=== PATIENT | female | born 1955 | race Caucasian/White ===

== ENCOUNTER → 2020-10-17 12:56 | Outpatient (CLI) | payer MEDICARE, OTHER, SELFPAY ==
[2020-10-17 13:34] LABS: COVID19 -Nasal RAPID POSITIVE (Negative)
== END ==
PROVIDERS: Referring Provider Physician Assistant; Visit Provider Physician Assistant
DX: U07.1 COVID-19 (principal)
CPT/HCPCS: 87635

== ENCOUNTER → 2021-04-24 07:58 | Outpatient (CLI) | payer MEDICARE, OTHER, SELFPAY ==
[2021-04-24 10:43] LABS: Alanine Aminotransferase 26 IU/L (<35); Albumin 4.5 g/dL (3.5-5.0); Albumin Globulin Ratio 1.5 (1.0-2.8); Alkaline Phosphatase 43 U/L (38-126); Aspartate Aminotransferase 28 IU/L (14-36); Bilirubin Total 0.8 mg/dL (0.2-1.3); Blood Urea Nitrogen 18 mg/dL (7-17); Calcium 9.9 mg/dL (8.4-10.2); Carbon Dioxide 33 mmol/L (22-32); Chloride 101 mmol/L (98-107); Cholesterol 214 mg/dL (140-199); Estimated Glomerular Filt Rate > 60.0 mL/min (>60); Glucose 99 mg/dL (80-110); HDL Cholesterol 71 mg/dL (40-60); HEMOLYSIS < 15 (0-50); LDL Cholesterol Calculated 112 mg/dL (<100); Potassium 4.4 mmol/L (3.4-5.1); Sodium 138 mmol/L (137-145); Total Protein 7.5 g/dL (6.3-8.2); Triglycerides 153 mg/dL (35-150)
[2021-04-24 10:50] LABS: Hemoglobin A1C% w Est Avg Glu 5.6 % (4.0-6.0)
== END ==
PROVIDERS: PCP Internal Medicine; Referring Provider Internal Medicine; Visit Provider Internal Medicine
DX: E11.9 Type 2 diabetes mellitus without complications (principal); E78.2 Mixed hyperlipidemia
CPT/HCPCS: 36415; 80053; 80061; 83036

== ENCOUNTER → 2021-08-13 08:34 | Outpatient (CLI) | payer MEDICARE, OTHER, SELFPAY ==
[2021-08-13 10:41] LABS: BUN Creatinine Ratio 20.2 (6-22); Blood Urea Nitrogen 19 mg/dL (7-17); Calcium 9.4 mg/dL (8.4-10.2); Carbon Dioxide 27 mmol/L (22-32); Chloride 105 mmol/L (98-107); Estimated Glomerular Filt Rate > 60 mL/min (>60); Glucose 108 mg/dL (80-110); HEMOLYSIS < 15 (0-50); Potassium 4.3 mmol/L (3.4-5.1); Sodium 139 mmol/L (137-145)
[2021-08-13 10:51] LABS: Hemoglobin A1C% w Est Avg Glu 5.9 % (4.0-6.0)
== END ==
PROVIDERS: PCP Internal Medicine; Referring Provider Internal Medicine; Visit Provider Internal Medicine
DX: E11.9 Type 2 diabetes mellitus without complications (principal); E78.2 Mixed hyperlipidemia
CPT/HCPCS: 36415; 80048; 83036

== ENCOUNTER → 2021-08-17 10:54 | Outpatient (CLI) | payer MEDICARE, OTHER, SELFPAY ==
--- NOTE | 2021-08-17 10:57 | DI.RAD.S_ITS ---
PROCEDURE: XR CERVICAL SPINE 2V OR 3V INDICATIONS: neck pain TECHNIQUE: 3 view(s) of the cervical spine were acquired. COMPARISON: None. FINDINGS: Bones: No fractures or dislocations to the T1 level. The lateral masses of C1 appear intact on the odontoid view. No suspicious bony lesions. Moderate C5-C6 and C6-C7 degenerative disc disease. Mild C4-C5 and C7-T1 degenerative disc disease. Mild facet hypertrophy noted throughout the cervical spine. Mild bilateral C3-C4, C4-C5, C5-C6 and C6-C7 uncovertebral hypertrophy. Soft tissues: No prevertebral soft tissue swelling. IMPRESSION: 1. Multilevel degenerative disc disease. 2. Multilevel facet and uncovertebral arthropathy. 3. No fracture. No acute osseous lesion. If symptoms and/or clinical suspicion for pathology persists, evaluation with MRI should be considered for further assessment. Dictated by: Shahnaz Enriquez MD, PhD on 08/17/2021 at 12:22 Approved by: Shahnaz Enriquez MD, PhD on 08/17/2021 at 12:23
== END ==
PROVIDERS: PCP Internal Medicine; Referring Provider Internal Medicine; Visit Provider Internal Medicine
DX: M47.812 Spondylosis without myelopathy or radiculopathy, cervical region (principal); M50.321 Other cervical disc degeneration at C4-C5 level
CPT/HCPCS: 72040

== ENCOUNTER 2021-10-28 09:41 | Emergency (ER) | payer MEDICARE, OTHER, SELFPAY ==
[2021-10-28] VITALS (13 sets, daily range): BP systolic 120–165; BP diastolic 60–82; PULSE 59–71; RESP 16–40; TEMP 36.8; O2SAT 96–100; BMI 29.4
--- NOTE | 2021-10-28 09:48 | DI.RAD.S_ITS ---
PROCEDURE: XR CHEST 1V INDICATIONS: chest pain TECHNIQUE: One view of the chest was acquired. COMPARISON: None. FINDINGS: Surgical changes and devices: None. Lungs and pleura: Lungs are clear. No pleural effusions or pneumothorax. Mediastinum: Mediastinal contours appear normal. Heart size is normal. Bones and chest wall: No suspicious bony lesions. Overlying soft tissues appear unremarkable. IMPRESSION: Normal chest radiograph. Dictated by: Vinod Licona M.D. on 10/28/2021 at 9:26 Approved by: Vinod Licona M.D. on 10/28/2021 at 9:28
[2021-10-28 10:28] LABS: Prothrombin Time 11.2 SECONDS (10.1-12.7)
[2021-10-28 10:29] LABS: Add Manual Diff / Slide Review NO; Basophils Absolute Auto 100 /uL (0-100); Eosinophils Absolute Auto 200 /uL (0-450); Eosinophils Percent Auto 2.8 % (2-4); Hemoglobin 14.5 g/dL (12.0-16.0); Lymphocytes Absolute Auto 2800 /uL (1100-4500); Mean Corpuscular HGB Conc 33.9 % (30-36); Mean Corpuscular Hemoglobin 27.7 PG (26-34); Mean Corpuscular Volume 81.8 fL (80-100); Monocytes Absolute Auto 500 /uL (0-900); Monocytes Percent Auto 7.5 % (3-14); Neutrophils Absolute Auto 2600 /uL (1500-7000); Neutrophils Percent Auto 42.7 % (50-75); Platelet Count 287 X10^3/uL (150-400); Red Blood Cell Count 5.25 X10^6/uL (4.0-5.2); Red Cell Distribution Width 13.8 % (11.6-14.8); White Blood Cell Count 6.1 X10^3/uL (4.5-11.0)
[2021-10-28 10:30] LABS: PTT Partial Thromboplastin Tim 31 SECONDS (26-36)
[2021-10-28 10:32] LABS: Alanine Aminotransferase 26 IU/L (<35); Albumin 4.2 g/dL (3.5-5.0); Albumin Globulin Ratio 1.2 (1.0-2.8); Alkaline Phosphatase 53 U/L (38-126); Aspartate Aminotransferase 27 IU/L (14-36); BUN Creatinine Ratio 22.5 (6-22); Bilirubin Total 0.6 mg/dL (0.2-1.3); Blood Urea Nitrogen 20 mg/dL (7-17); Calcium 9.4 mg/dL (8.4-10.2); Carbon Dioxide 25 mmol/L (22-32); Chloride 106 mmol/L (98-107); Creatine Kinase 113 U/L (30-135); Estimated Glomerular Filt Rate > 60 mL/min (>60); Globulin 3.5 g/dL (1.7-4.1); Glucose 127 mg/dL (80-110); HEMOLYSIS < 15 (0-50); Lipase 93 U/L (23-300); Magnesium 1.8 mg/dL (1.6-2.3); Potassium 3.9 mmol/L (3.4-5.1); Sodium 140 mmol/L (137-145); Total Protein 7.7 g/dL (6.3-8.2)
[2021-10-28 10:34] LABS: COVID19 -Nasal RAPID Negative (Negative)
[2021-10-28 10:44] LABS: Troponin I < 0.012 ng/mL (0.01-0.034)
[2021-10-28 10:47] LABS: CKMB % Relative Index 0.9 % (1.5-5.0); Creatine Kinase MB 0.97 ng/mL (<2.37)
[2021-10-28 12:35] LABS: Troponin I < 0.012 ng/mL (0.01-0.034)
--- NOTE | 2021-10-28 12:36 | ED_ITS ---
HPI - Chest Pain General Chief Complaint: Chest Pain Stated Complaint: heart palp pressure in chest Time Seen by Provider: 10/28/21 11:06 Source: patient Mode of arrival: Ambulatory Limitations: no limitations History of Present Illness HPI narrative: This is a 66-year-old female with history of hypertension and dyslipidemia with frequent palpitations that are increasing in frequency but also developed chest pressure this morning substernal about 8:00 a.m. in the morning that has been persistent had not resolved, no radiation, no shortness of breath, no diaphoresis, no lightheadedness, no nausea or vomiting, no swelling in extremities. Patient is quite active she biked 15 miles yesterday. She does have a family history dad had a CABG at age 75 in his 80s was a heavy smoker, she states her mom was also heavy smoker but of a VT younger than patient's stated age. She is multiple siblings but she is unsure of their medical status. She had a similar episode 4 years ago never had treadmill str ess testing she went to an urgent care. She would a complete hysterectomy 20 years ago, prior cholecystectomy, no tobacco drinks 1.5 alcoholic drinks daily, no illicit. No long distance travel, no blood clotting history in family or patient. Patient sees Dr. Contreras for her primary care. Related Data Home Medications Medication Instructions Recorded Confirmed cholecalciferol (vitamin D3) 25 25 mcg PO DAILY 03/01/21 08/17/21 mcg (1,000 unit) capsule digestive enzymes 1 cap PO TIDWMEAL 03/01/21 08/17/21 vitamin B complex 1 tab PO DAILY 03/01/21 08/17/21 Previous Rx's Medication Instructions Recorded hydrochlorothiazide 12.5 mg tablet 12.5 mg PO DAILY #90 tabs 05/22/21 ipratropium bromide 21 mcg (0.03 2 spray intranasal DAILY PRN 05/22/21 %) nasal spray allergy symptoms #30 mL pravastatin 20 mg tablet 20 mg PO DAILY #90 tabs 05/22/21 Allergies Allergy/AdvReac Type Severity Reaction Status Date / Time Penicillins Allergy Intermediate Fever, Verified 08/17/21 10:33 chills Review of Systems Review of Systems ROS Unobtainable: All systems reviewed & are unremarkable except as noted in HPI and below Patient History Medical History Body mass index (BMI) of 25 to 29 in adult COVID-19 Impaired glucose tolerance Mixed hyperlipidemia Surgical History H/O section S/P cholecystectomy S/P hysterectomy S/P left rotator cuff repair S/P tubal ligation Social History Smoking Status: Never smoker Smoking Status: Never smoker Exam Narrative Exam Narrative: GENERAL: Alert and oriented x three, female in mild distress. HEENT: Head normocephalic, atraumatic, EOMI, pupils reactive, face symmetric, moist mucous membranes NECK: Supple, full range of motion CARDIOVASCULAR: Regular rate and rhythm without murmurs, rubs or gallops. No rash, erythema or other skin changes. No reproducible chest pain or pressure. No swelling bilateral lower extremities. No JVD. RESPIRATORY: Breath sounds equal bilaterally, no wheezes rales or rhonchi. ABDOMEN: Soft, nontender. Normoactive bowel sounds all 4 quadrants. No guarding or rebound, rigidity, no mass : No CVA tenderness EXTREMITIES: Normal range of motion, no clubbing or edema. Neurovascularly intact NEUROLOGICAL: Cranial nerves II through XII grossly intact. Moving all extremities SKIN: Warm, dry, no petechiae, no rashes or lesions. Initial Vital Signs Initial Vital Signs: Vital Signs Temperature 98.2 F 10/28/21 09:54 Pulse Rate 68 10/28/21 09:54 Respiratory Rate 18 10/28/21 09:54 Blood Pressure 165/72 H 10/28/21 09:54 Pulse Oximetry 100 10/28/21 09:54 Oxygen Delivery Method 10/28/21 09:54 Scores HEART Score Heart Score history: Moderately Suspicious Heart Score EKG: Normal Heart Score Age: > or = 65 years old Heart Score risk factors: > 3 risk factors or hx of atherosclerotic disease Heart Score troponin: < or = to normal limit Heart Score Total: 5 Course Orders Ordered: ED Orders 10/28/21 10:07 COVID19 -Nasal RAPID/Pre-Proc Stat Complete Blood Count AUTO DIFF Stat Comprehensive Metabolic Panel Stat Lipase Stat Magnesium Stat Partial Thromboplastin Time Stat Prothrombin Time INR Stat Troponin & CK Cardiac Panel Stat 10/28/21 12:07 Trop I [Troponin I] Stat 10/28/21 16:00 Trop I [Troponin I] Stat Discontinued Medications Aspirin (Aspirin 81 Mg Chew Tab) 324 mg PO NOW ONE Stop: 10/28/21 13:09 Last Admin: 10/28/21 13:28 Dose: 324 mg Documented By: ALEJO Reevaluation(s) Reevaluation #1: Patient does not wish to be kept overnight for observation, she does understand risks versus benefits. She is open to seeing for 4 hour troponin so will repeat this at 4:00 p.m. 6 hours from 1st troponin in 4 hours from her 2nd. Time: 13:10 Consultations Consultation #1: Dr. Contreras, is willing to accept patient for chest pain but we can not get stress testing tomorrow would likely be serial troponins and echo. Discussed with patient she is reluctant to spend the night. Dr. Contreras recommends at least a 6 hour troponin at 4:00 p.m. and if negative can follow-up with echo and stress testing outpatient but he is happy to keep patient if she would like to stay. Time: 13:00 Vital Signs Vital signs: Vital Signs - 8 hr 10/28/21 11:30 10/28/21 11:30 10/28/21 12:00 Pulse Rate 69 Respiratory Rate 17 Blood Pressure 121/70 129/73 Pulse Oximetry 96 10/28/21 12:00 10/28/21 12:30 10/28/21 12:30 Pulse Rate 65 59 L Respiratory Rate 23 16 Blood Pressure 121/71 Pulse Oximetry 98 98 10/28/21 13:00 10/28/21 13:00 10/28/21 13:30 Pulse Rate 67 Respiratory Rate 20 Blood Pressure 127/82 129/78 Pulse Oximetry 99 10/28/21 13:30 10/28/21 16:07 10/28/21 16:08 Pulse Rate 67 71 Respiratory Rate 27 H 40 H Blood Pressure 127/69 Pulse Oximetry 98 97 10/28/21 16:08 10/28/21 16:30 10/28/21 17:00 Pulse Rate 67 65 63 Respiratory Rate 16 18 18 Blood Pressure Pulse Oximetry 98 96 96 MDM - Chest Pain Lab Data Result diagrams: 10/28/21 10:07 10/28/21 10:07 Labs: Lab Results 09/04/22 09/04/22 09/04/22 Range/Units 10:07 10:07 10:07 WBC 6.1 (4.5-11.0) X10^3/uL RBC 5.25 H (4.0-5.2) X10^6/uL Hgb 14.5 (12.0-16.0) g/dL Hct 43.0 (36-46) % MCV 81.8 (80-100) fL MCH 27.7 (26-34) PG MCHC 33.9 (30-36) % RDW 13.8 (11.6-14.8) % Plt Count 287 (150-400) X10^3/uL Neut % (Auto) 42.7 L (50-75) % Lymph % (Auto) 46.0 H (25-40) % [place] % (Auto) 7.5 (3-14) % Eos % (Auto) 2.8 (2-4) % Baso % (Auto) 1.0 (0-2) % Neut # (Auto) 2600 (1739-8011) /uL Lymph # (Auto) 2800 (0239-1825) /uL [place] # (Auto) 500 (0-900) /uL Eos # (Auto) 200 (0-450) /uL Baso # (Auto) 100 (0-100) /uL PT 11.2 (10.1-12.7) SECONDS INR 1.0 (0.9-1.3) APTT 31 (26-36) SECONDS Sodium 140 (137-145) mmol/L Potassium 3.9 (3.4-5.1) mmol/L Chloride 106 (98-107) mmol/L Carbon Dioxide 25 (22-32) mmol/L BUN 20 H (7-17) mg/dL Creatinine 0.89 (0.52-1.04) mg/dL Estimated GFR > 60 (>60) mL/min BUN/Creatinine Ratio 22.5 H (6-22) Glucose 127 H (80-110) mg/dL Calcium 9.4 (8.4-10.2) mg/dL Magnesium 1.8 (1.6-2.3) mg/dL Total Bilirubin 0.6 (0.2-1.3) mg/dL AST 27 (14-36) IU/L ALT 26 (<35) IU/L Alkaline Phosphatase 53 (38-126) U/L Total Creatine Kinase 113 (30-135) U/L CK-MB (CK-2) 0.97 (<2.37) ng/mL CK-MB (CK-2) Rel Index 0.9 L (1.5-5.0) % Troponin I < 0.012 (0.01-0.034) ng/mL Total Protein 7.7 (6.3-8.2) g/dL Albumin 4.2 (3.5-5.0) g/dL Globulin 3.5 (1.7-4.1) g/dL Albumin/Globulin Ratio 1.2 (1.0-2.8) Lipase 93 (23-300) U/L SARS-CoV-2 (PCR) (Negative) 10/28/21 10/28/21 10/28/21 Range/Units 10:07 12:07 16:00 WBC (4.5-11.0) X10^3/uL RBC (4.0-5.2) X10^6/uL Hgb (12.0-16.0) g/dL Hct (36-46) % MCV (80-100) fL MCH (26-34) PG MCHC (30-36) % RDW (11.6-14.8) % Plt Count (150-400) X10^3/uL Neut % (Auto) (50-75) % Lymph % (Auto) (25-40) % [place] % (Auto) (3-14) % Eos % (Auto) (2-4) % Baso % (Auto) (0-2) % Neut # (Auto) (6906-4313) /uL Lymph # (Auto) (3875-6989) /uL [place] # (Auto) (0-900) /uL Eos # (Auto) (0-450) /uL Baso # (Auto) (0-100) /uL PT (10.1-12.7) SECONDS INR (0.9-1.3) APTT (26-36) SECONDS Sodium (137-145) mmol/L Potassium (3.4-5.1) mmol/L Chloride (98-107) mmol/L Carbon Dioxide (22-32) mmol/L BUN (7-17) mg/dL Creatinine (0.52-1.04) mg/dL Estimated GFR (>60) mL/min BUN/Creatinine Ratio (6-22) Glucose (80-110) mg/dL Calcium (8.4-10.2) mg/dL Magnesium (1.6-2.3) mg/dL Total Bilirubin (0.2-1.3) mg/dL AST (14-36) IU/L ALT (<35) IU/L Alkaline Phosphatase (38-126) U/L Total Creatine Kinase (30-135) U/L CK-MB (CK-2) (<2.37) ng/mL CK-MB (CK-2) Rel Index (1.5-5.0) % Troponin I < 0.012 < 0.012 (0.01-0.034) ng/mL Total Protein (6.3-8.2) g/dL Albumin (3.5-5.0) g/dL Globulin (1.7-4.1) g/dL Albumin/Globulin Ratio (1.0-2.8) Lipase (23-300) U/L SARS-CoV-2 (PCR) Negative (Negative) Imaging Data Chest x-ray: Radiologist's Impression: [address] [id number] ReportSigned Patient: Ollie Krishna RMR#: [id number]: 09/30/1942cct:[id number]/Sex: 79 / FDate of Service: 10/28/21Loc: EDAccession Number: [id number]? ? Procedure: XR ankle RT min 3V Ordering Provider: Taylor Leggett D.O. PROCEDURE:? XR ANKLE RT MIN 3V ? INDICATIONS:? fall, ankle pain and swelling ? TECHNIQUE:? 3 views of the ankle were acquired.? ? COMPARISON:? [facility], , ANKLE 3 VIEWS RIGHT, 10/04/2015, 13:41. ? FINDINGS:? Distal fibular fracture with mild lateral displacement of fracture fragment.? Medial malleolar fracture.? Possible posterior malleolar fracture not well appreciated.? There is widening of the ankle mortise.? Prominent soft tissue edema. .? ? ? IMPRESSION:? Medial and lateral malleolar fractures with suspected posterior malleolar fracture. ? Dictated by: Vinod Licona M.D. on 10/28/2021 at 9:53? ?? Approved by: Vinod Licona M.D. on 10/28/2021 at 9:58 ECG Data Attestation: I personally reviewed and interpreted this ECG as follows: Interpretation: EKG 1 shows a rate of 75 CO 172 QRS 86 QTC 439. No acute ST changes appreciated. EKG 2 Sinus rhythm rate of 60 CO 186 QRS of 90, QTC 424. No acute ST changes appreciated. Patient has prior from earlier today no acute change. EKG 3 sinus rhythm rate of 60 P are 174 QRS of 92 QTC 412. Patient's EKG appears similar to priors from today. MDM Narrative Medical decision making narrative: 66-year-old female with complaint of palpitations which are quite frequent but also developed some chest pressure today does not radiate, no diaphoresis or other symptoms but patient has risk factors with hypertension dyslipidemia and family history although both parents were heavy smokers. Patient's EKG and troponins x2 did not show acute changes no other clear cause was found for her symptoms. Spoke with Dr. Contreras her primary care physician about chest pain observation they can not get stress testing tomorrow they will not have any available we could keep her for serial enzymes but she will have to have stress test as outpatient. Patient prefers not to come in although Dr. Contreras accepts for show troponins potential echo tomorrow. Discussed with Dr. Contreras for repeat 6 hour troponin would feel comfortable ordering stress testing outpatient. This was performed no acute changes patient continues to be chest pain-free and she understands risks versus benefits and that observation was available overnight. Patient and I discussed return precautions. She will touch base with Dr. Contreras on Friday for stress testing as outpatient and appropriate workup. Discharge Plan Departure Patient Disposition: Home Clinical Impression: Chest pain Instructions: DI for Chest Pain Activity Restrictions/Additional Instructions: Follow-up with Dr. Contreras for recheck. I spoke with him today he will assist you in getting outpatient stress testing performed. Also discussed that you have frequent palpitations he may order a Holter monitor or ZIO patch which is away to monitor your rhythm at home. Please continue an aspirin daily until seen with your physician. Please return for new or worsening chest pain, shortness of breath, lightheadedness or passing out, diaphoresis or sweatiness, increasing palpitations or persistent fast heartbeat, new swelling in her extremities or other new or concerning symptoms. Prescriptions: No Action pravastatin 20 mg tablet 20 mg PO DAILY Qty: 90 3RF ipratropium bromide 21 mcg (0.03 %) spray,non-aerosol 2 spray intranasal DAILY PRN (Reason: allergy symptoms) Qty: 30 11RF hydrochlorothiazide 12.5 mg tablet 12.5 mg PO DAILY Qty: 90 3RF vitamin B complex Tablet 1 tab PO DAILY cholecalciferol (vitamin D3) 25 mcg (1,000 unit) capsule 25 mcg PO DAILY digestive enzymes Capsule 1 cap PO TIDWMEAL Hold Instructions: no help for IBS Rx Instructions: administer with food; swallow whole; do not crush/chew/dissolve/break/cut Referrals: Alvino Contreras MD [Primary Care Provider] - Visit Report Forms: Patient Portal/API
[2021-10-28] MEDS: ASPIRIN 81 MG CHEW TAB 324 MG PO (13:28)
[2021-10-28 16:26] LABS: Troponin I < 0.012 ng/mL (0.01-0.034)
== END 2021-10-28 17:25 | disposition home or self-care (01) ==
PROVIDERS: Emergency Provider Emergency Medicine; PCP Internal Medicine
DX: R07.9 Chest pain, unspecified (principal); R00.2 Palpitations; Z20.822 Contact with and (suspected) exposure to COVID-19
CPT/HCPCS: 36415; 71045; 80053; 82550; 82553; 83690; 83735; 84484; 85025; 85610; 85730; 87635; 93005; 93010; 99284; C9803

== ENCOUNTER → 2021-11-30 12:35 | Outpatient (CLI) | payer MEDICARE, OTHER, SELFPAY ==
[2021-11-30 13:29] LABS: COVID19 -Nasal RAPID Negative (Negative)
--- NOTE | 2021-11-30 14:28 | PM.TREADMILL ---
Cardiac Stress Test Report Referral & Results Date Patient Seen: 11/30/21 Requesting provider: Alvino Contreras Indication: Chest pain status post ER visit Rest ECG: Unremarkable Procedure Note: Today following both written and verbal informed consent, the patient was exercised according to a standard Balbir protocol. The patient exercised for a total of 9 minutes 48 seconds achieving a maximum heart rate of 181. Patient's maximum systolic blood pressure was 182. This was an estimated 10.1 MET's. Patient had normal heart rate and blood pressure response to exercise There are no ST-T segment changes In recovery had rare PACs rare PVCs Function aerobic impairment way way way off scale estimate capacity equal to that of an active 33-year-old woman Impression: No evidence of ischemia with excellent exercise capacity Please note: Actual ECG tracings can be found in the PACS system.
--- NOTE | 2021-12-01 04:33 | DI.NM.S_ITS ---
DATE OF SERVICE: 11/30/2021 PROCEDURE PERFORMED: Exercise treadmill stress test without imaging. ORDERING PROVIDER: Dr. Alvino Contreras. INDICATIONS: The patient is a 66-year-old female with hyperlipidemia, borderline diabetes, and chest discomfort. FINDINGS: 1. The patient exercised for 9 minutes, 48 seconds, suggesting exceptional exercise capacity with an RONALD of likely around -50%, achieving 10.1 METs. 2. She had a somewhat accentuated heart rate response to exercise, achieving a maximum heart rate of 181 BPM (118% of her predicted maximum). She had a normal blood pressure response. 3. She had no chest discomfort or other anginal symptoms. 4. Her resting ECG shows sinus rhythm with normal ST segments. There are no significant ST-segment shifts or arrhythmias with stress. She had rare isolated PACs and PVCs in recovery but no concerning complex ectopy. IMPRESSION: 1. Normal exercise treadmill study for ischemia. 2. Exceptional exercise capacity without angina and a somewhat accentuated heart rate response to exercise. Nita Thibodeaux - Cole/warren doc#: [id number]/job#: [id number] dd: 11/30/2021 17:02:00 dt: 12/01/2021 04:04:00 DICTATING /COPIES TO: Gt Evangelista MD COPIES MNE: NATALIE;
== END ==
PROVIDERS: PCP Internal Medicine; Referring Provider Internal Medicine; Visit Provider Internal Medicine
DX: R07.89 Other chest pain (principal); E78.5 Hyperlipidemia, unspecified; R73.03 Prediabetes; Z20.822 Contact with and (suspected) exposure to COVID-19
CPT/HCPCS: 87635; 93017

== ENCOUNTER → 2021-12-04 08:02 | Outpatient (CLI) | payer MEDICARE, OTHER, SELFPAY ==
--- NOTE | 2021-12-04 08:03 | DI.ECHO.S_ITS ---
[facility]---------+ [facility] +---------+ : : [address] [place] : : : : [id number] : : : : Phone: [phone]+ Echocardiogram Report + + :Name: BRAYDEN SHANE Study Date: 12/04/2021 Height: 70 in : :[facility] ReadingLocation: Weight: 205 lb : : Gender: Female BSA: 2.1 m2 : :: 1955 Age: 66 yrs BP: 123/87 mmHg: :Reason For Study: ARRHYTHMIA, CHEST PAIN : :Ordering Physician: LAKE, : :JOLIE Mahajan Performed By: Kristen Dumont : :Referring: JOLIE BETHEA : + + Interpretation Summary The ejection fraction is estimated to be 60-65%. There is no significant valvular heart disease. Procedure: A two-dimensional transthoracic echocardiogram with color flow and Doppler was performed. The study quality was technically difficult. There is no prior echocardiogram noted for this patient. A contrast injection of Definity was performed to improve assessment of LV function. The patient was in sinus rhythm with heart rates between 56-71 bpm during the exam. Left Ventricle: The left ventricle is normal in size and wall thickness. The ejection fraction is estimated to be 60-65%. Left ventricular wall motion is normal. Right Ventricle: The right ventricle is normal in size and function. Atria: The left atrial size is normal. Right atrial size is normal. There is no Doppler evidence for an interatrial shunt. Mitral Valve: The mitral valve is normal in structure and function. There is trace mitral regurgitation. Aortic Valve: The aortic valve is not well visualized. The aortic valve is grossly normal. The aortic valve opens well. There is no aortic valve stenosis. No aortic regurgitation is present. Tricuspid Valve: The tricuspid valve is not well visualized, but is grossly normal. There is trace tricuspid regurgitation. Pulmonic Valve: The pulmonic valve is not well visualized. There is no pulmonic valvular regurgitation. Great Vessels: The aortic root is normal size. The ascending aorta is at the upper limits of normal in size. The IVC is dilated (diameter is greater than 2.1 cm) yet it collapses greater than 50% with a sniff. This suggests a right atrial pressure of 8 mm Hg. Pericardium/ Pleura There is no pericardial effusion. There is no pleural effusion. MMode/2D Measurements & Calculations LVIDd: 5.0 cm LVOT diam: 2.0 cm LVIDs: 3.0 cm Ao root diam: 3.2 cm FS: 40.5 % asc Aorta Diam: 3.8 cm EPSS: 0.34 cm Ao Arch Diam (Prox Trans): 3.3 cm IVSd: 1.0 cm LVPWd: 1.00 cm LV lee. diameter/BSA (cm/m^2): 2.4 LV sys. diameter/BSA (cm/m^2): 1.4 LA A2 area: 22.6 cm2 RA long axis: 4.9 cm LA A4 area: 18.7 cm2 RA area: 14.5 cm2 LA length (vol): 5.6 cm RA vol: 36.8 ml LA vol: 64.1 ml RA : 17.4 ml/m2 LA vol index: 30.4 ml/m2 IVC diam: 2.4 cm RVD1 (basal): 3.4 cm TAPSE: 2.0 cm Doppler Measurements & Calculations Ao V2 max: 129.0 cm/sec LVOT Max Olayinka: 99.0 cm/sec Ao V2 mean: 93.4 cm/sec LV V1 max P.9 mmHg Ao max P.7 mmHg LV V1 VTI: 24.7 cm Ao mean P.8 mmHg MOLLY(I,D): 2.8 cm2 Ao V2 VTI: 28.8 cm MOLLY(V,D): 2.5 cm2 sev ratio: 0.86 MOLLY indexed to BSA (cm^2/m^2): 1.3 MV E max olayinka: 59.4 cm/sec PA V2 max: 105.5 cm/sec MV A max olayinka: 70.7 cm/sec PA V2 mean: 74.0 cm/sec MV E/A: 0.84 PA mean P.4 mmHg Med Peak E' Olayinka: 9.3 cm/sec PA pr(Accel): 32.8 mmHg E/E' med: 6.4 Lat Peak E' Olayinka: 9.6 cm/sec E/E' lat: 6.2 E/e' average: 6.3 MV dec time: 0.32 sec SV(LVOT): 81.3 ml Reading Physician:02:16 PM
== END ==
PROVIDERS: PCP Internal Medicine; Referring Provider Internal Medicine; Visit Provider Internal Medicine
DX: R07.9 Chest pain, unspecified (principal); I49.9 Cardiac arrhythmia, unspecified
CPT/HCPCS: 93306; Q9957

== ENCOUNTER → 2021-12-05 15:16 | Outpatient (CLI) | payer MEDICARE, OTHER, SELFPAY ==
--- NOTE | 2021-12-25 16:59 | P.HOLT.S_ITS ---
Pull Out Operator Report Referral & Results Date Patient Seen: 12/05/21 Requesting provider: Alvino Contreras Indication: Cardiac arrhythmia Duration of monitoring (days): 14 Diary information: There were 6 patient triggered events and 6 patient diary entries All 12 of these events were variably associated with (within 45 seconds) sinus rhythm, PVCs, PACs and SVT Data: Minimum heart rate identified was 50 beats per minute at 05:16 on 12/13/2021 Maximum sinus heart rate was 140 beats per minute at 20:16 on 12/08/2021 Maximum overall heart rate was 162 beats per minute at 18:38 on 12/07/2021 during a run of SVT Less than 1% of identified beats were ventricular or supraventricular ectopic in origin, which would classify them as rare. There were no pauses of 3 seconds or longer or episodes of atrial fibrillation identified on this study There were 26 runs of SVT the fastest being the 7 beat run at 162 beats per minute the longest lasting 17.2 seconds at a rate of 118 beats per minute which suggest possible atrial tachycardia Impression: 14 day secured entrance monitor demonstrating very rare very brief runs of SVT otherwise essentially normal 14 day secured entrance monitor Clinical correlation suggested
== END ==
PROVIDERS: PCP Internal Medicine; Referring Provider Internal Medicine; Visit Provider Internal Medicine
DX: I49.9 Cardiac arrhythmia, unspecified (principal); R07.9 Chest pain, unspecified
CPT/HCPCS: 93246; 93248

== ENCOUNTER → 2021-12-21 10:49 | Outpatient (CLI) | payer MEDICARE, OTHER, SELFPAY ==
--- NOTE | 2021-12-21 | DI.MG.S_ITS ---
BILATERAL DIGITAL SCREENING MAMMOGRAM 3D/2D WITH CAD: 12/21/2021 CLINICAL: Routine screening. Comparison is made to exams dated: 10/06/2019 mammogram, 08/05/2018 mammogram, and 06/25/2017 mammogram - outside. Both breasts are heterogeneously dense, which may obscure small masses (category c / 51-75% glandular tissue). Current study was also evaluated with a Computer Aided Detection (CAD) system. No significant masses, calcifications, or other findings are seen in either breast. There has been no significant interval change. IMPRESSION: NEGATIVE There is no mammographic evidence of malignancy. A 1 year screening mammogram is recommended. Based on the Tyrer Cuzick model (a risk assessment model) the patient's lifetime risk is 7.3% and her 10 year risk is 3.7%. According to the ACR, ACS, and NCCN guidelines, an annual breast MRI exam along with mammogram is recommended if the patient's lifetime risk is 20% or greater. This exam was interpreted at Station ID: [id number]. NOTE: For mammograms, a report in lay terms will be sent to the patient. Approximately 15% of breast malignancies will not be visualized mammographically. In the management of a palpable breast mass, a negative mammogram must not discourage biopsy of a clinically suspicious lesion. Electronically Signed By: Lin finley/heraclio:12/21/2021 14:13:42 letter sent: Normal Exam ACR BI-RADS Category 1: Negative 3341F
== END ==
PROVIDERS: PCP Internal Medicine; Referring Provider Internal Medicine; Visit Provider Internal Medicine
DX: Z12.31 Encounter for screening mammogram for malignant neoplasm of breast (principal)
CPT/HCPCS: 77063; 77067

== ENCOUNTER → 2022-01-23 08:32 | Outpatient (CLI) | payer MEDICARE, OTHER, SELFPAY ==
[2022-01-23 10:53] LABS: Alanine Aminotransferase 30 IU/L (<35); Albumin 4.2 g/dL (3.5-5.0); Albumin Globulin Ratio 1.4 (1.0-2.8); Alkaline Phosphatase 55 U/L (38-126); Aspartate Aminotransferase 28 IU/L (14-36); BUN Creatinine Ratio 21.4 (6-22); Bilirubin Total 0.7 mg/dL (0.2-1.3); Blood Urea Nitrogen 18 mg/dL (7-17); Calcium 9.4 mg/dL (8.4-10.2); Carbon Dioxide 26 mmol/L (22-32); Chloride 103 mmol/L (98-107); Cholesterol 253 mg/dL (140-199); Estimated Glomerular Filt Rate > 60 mL/min (>60); Globulin 3.1 g/dL (1.7-4.1); Glucose 96 mg/dL (80-110); HDL Cholesterol 65 mg/dL (40-60); HEMOLYSIS < 15 (0-50); LDL Cholesterol Calculated 160 mg/dL (<100); Potassium 4.1 mmol/L (3.4-5.1); Sodium 139 mmol/L (137-145); Total Protein 7.3 g/dL (6.3-8.2); Triglycerides 142 mg/dL (35-150)
== END ==
PROVIDERS: PCP Internal Medicine; Referring Provider Internal Medicine; Visit Provider Internal Medicine
DX: E78.2 Mixed hyperlipidemia (principal)
CPT/HCPCS: 36415; 80053; 80061

== ENCOUNTER → 2022-09-05 09:48 | Outpatient (CLI) | payer MEDICARE, OTHER, SELFPAY ==
[2022-09-05 12:25] LABS: Alanine Aminotransferase 25 IU/L (<35); Albumin 4.2 g/dL (3.5-5.0); Albumin Globulin Ratio 1.4 (1.0-2.8); Alkaline Phosphatase 57 U/L (38-126); Aspartate Aminotransferase 27 IU/L (14-36); Bilirubin Total 0.7 mg/dL (0.2-1.3); Blood Urea Nitrogen 20 mg/dL (7-17); Calcium 9.6 mg/dL (8.4-10.2); Carbon Dioxide 33 mmol/L (22-32); Chloride 100 mmol/L (98-107); Cholesterol 252 mg/dL (140-199); Estimated Glomerular Filt Rate > 60 mL/min (>60); Glucose 96 mg/dL (80-110); HDL Cholesterol 64 mg/dL (40-60); HEMOLYSIS < 15 (0-50); LDL Cholesterol Calculated 161 mg/dL (<100); Potassium 4.3 mmol/L (3.4-5.1); Sodium 138 mmol/L (137-145); Total Protein 7.2 g/dL (6.3-8.2); Triglycerides 137 mg/dL (35-150)
== END ==
PROVIDERS: PCP Internal Medicine; Referring Provider Internal Medicine; Visit Provider Internal Medicine
DX: E78.2 Mixed hyperlipidemia (principal); R73.02 Impaired glucose tolerance (oral)
CPT/HCPCS: 36415; 80053; 80061

== ENCOUNTER → 2023-02-25 13:21 | Outpatient (CLI) | payer MEDICARE, OTHER, SELFPAY ==
--- NOTE | 2023-02-25 13:23 | DI.MG.S_ITS ---
BILATERAL DIGITAL SCREENING MAMMOGRAM 3D/2D WITH CAD: 02/25/2023 CLINICAL: Routine screening. Family history of breast cancer. Comparison is made to exams dated: 12/21/2021 mammogram - [facility], 10/06/2019 mammogram, and 08/05/2018 mammogram - outside. Both breasts are heterogeneously dense, which may obscure small masses (category c / 51-75% glandular tissue). Current study was also evaluated with a Computer Aided Detection (CAD) system. No significant masses, calcifications, or other findings are seen in either breast. There has been no significant interval change. IMPRESSION: NEGATIVE There is no mammographic evidence of malignancy. A 1 year screening mammogram is recommended. Based on the Tyrer Cuzick model (a risk assessment model) the patient's lifetime risk is 7.0% and her 10 year risk is 3.6%. According to the ACR, ACS, and NCCN guidelines, an annual breast MRI exam along with mammogram is recommended if the patient's lifetime risk is 20% or greater. This exam was interpreted at Station ID: [id number]. NOTE: For mammograms, a report in lay terms will be sent to the patient. Approximately 15% of breast malignancies will not be visualized mammographically. In the management of a palpable breast mass, a negative mammogram must not discourage biopsy of a clinically suspicious lesion. Electronically Signed By: Yonas pan/heraclio:02/25/2023 16:31:34 letter sent: Normal Exam ACR BI-RADS Category 1: Negative 3341F
== END ==
PROVIDERS: PCP Internal Medicine; Referring Provider Internal Medicine; Visit Provider Internal Medicine
DX: Z12.31 Encounter for screening mammogram for malignant neoplasm of breast (principal); Z80.3 Family history of malignant neoplasm of breast
CPT/HCPCS: 77063; 77067

== ENCOUNTER → 2023-10-07 10:24 | Outpatient (CLI) | payer MEDICARE, OTHER, SELFPAY ==
--- NOTE | 2023-10-07 10:25 | DI.RAD.S_ITS ---
PROCEDURE: XR KNEE RT 3V INDICATIONS: knee pain TECHNIQUE: 3 views of the knee were acquired. COMPARISON: None. FINDINGS: Bones: No fractures or dislocations. 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 Vacuum phenomena of the lateral compartment noted. Soft tissues: No radiographically evident suprapatellar joint effusion IMPRESSION: No acute bony abnormality or significant effusion. Tricompartmental DJD Dictated by: Lewis Davis M.D. on 10/07/2023 at 15:33 Approved by: Lewis Davis M.D. on 10/07/2023 at 15:34
== END ==
PROVIDERS: PCP Internal Medicine; Referring Provider Internal Medicine; Visit Provider Internal Medicine
DX: M17.11 Unilateral primary osteoarthritis, right knee (principal); M25.569 Pain in unspecified knee
CPT/HCPCS: 73562

== ENCOUNTER → 2024-03-12 11:03 | Outpatient (CLI) | payer MEDICARE, OTHER, SELFPAY ==
--- NOTE | 2024-03-12 11:07 | DI.MG.S_ITS ---
BILATERAL DIGITAL SCREENING MAMMOGRAM 3D/2D WITH CAD: 03/12/2024 CLINICAL: Routine screening. Family history of breast cancer. Comparison is made to exams dated: 02/25/2023 mammogram, 12/21/2021 mammogram - [facility], and 10/06/2019 mammogram - outside. The breasts are heterogeneously dense, which may obscure small masses (category c / 51-75% glandular tissue). Current study was also evaluated with a Computer Aided Detection (CAD) system. There is a focal asymmetry in the left breast at 12 o'clock anterior depth. This is more prominent. No other significant masses, calcifications, or other findings are seen in either breast. IMPRESSION: INCOMPLETE: NEED ADDITIONAL IMAGING EVALUATION The focal asymmetry in the left breast is indeterminate. Additional views with possible ultrasound are recommended. Based on the Tyrer Cuzick model (a risk assessment model) the patient's lifetime risk is 6.6% and her 10 year risk is 3.6%. According to the ACR, ACS, and NCCN guidelines, an annual breast MRI exam along with mammogram is recommended if the patient's lifetime risk is 20% or greater. This exam was interpreted at Station ID: [id number]. NOTE: For mammograms, a report in lay terms will be sent to the patient. Approximately 15% of breast malignancies will not be visualized mammographically. In the management of a palpable breast mass, a negative mammogram must not discourage biopsy of a clinically suspicious lesion. Electronically Signed By: Elder Zaidi M.D. [facility] [place]/:03/12/2024 14:18:17 letter sent: Additional Imaging Needed ACR BI-RADS Category 0: Incomplete: Need Additional Imaging Evaluation
== END ==
LOC: MAMMO 11:05
PROVIDERS: PCP Internal Medicine; Referring Provider Internal Medicine; Visit Provider Internal Medicine
DX: R92.8 Other abnormal and inconclusive findings on diagnostic imaging of breast (principal); Z12.31 Encounter for screening mammogram for malignant neoplasm of breast; R92.333 Mammographic heterogeneous density, bilateral breasts; Z80.3 Family history of malignant neoplasm of breast
CPT/HCPCS: 77063; 77067

== ENCOUNTER → 2024-04-02 13:08 | Outpatient (CLI) | payer MEDICARE, OTHER, SELFPAY ==
--- NOTE | 2024-04-02 13:09 | DI.MRI.S_ITS ---
PROCEDURE: MR SHOULDER RT WO CON INDICATIONS: right shoulder pain TECHNIQUE: Noncontrast oblique coronal T2 fast spin echo with fat saturation, oblique sagittal T1 spin echo and T2 fast spin echo with fat saturation, axial T1 spin echo and T2 fast spin echo with fat saturation through the shoulder. COMPARISON: None. FINDINGS: Image quality: Excellent. Rotator cuff: Near complete full-thickness tear of the supraspinatus insertion with laxity of the proximal tendon and approximately 1.7 centimeters of retraction (series 8, image 16) with additional bursal sided partial-thickness tears (series 10, image 22). There are several interstitial tears involving the infraspinatus near its insertion, the largest measuring 1.9 centimeters in length (series 6, image 13 and series 10, image 20). There is a focal partial-thickness tear through the articular surface of the subscapularis insertion (series 6, image 13). Sagittal images demonstrate mild supraspinatus and minimal infraspinatus muscle atrophy. Bones and bursae: No bone marrow contusions or fractures. [id number] right acromioclavicular joint degeneration. The acromion demonstrates conventional anatomy, without an os acromiale. There is fluid between the superior aspect of the humeral head in the articular sided aspect of the acromion, with only a 2 millimeter gap consistent with high riding humeral head. Capsule and soft tissues: Labrum appears intact. The long head of the biceps tendon demonstrates normal location but with significant edema and surrounding fluid compatible with tenosynovitis. Small interstitial tear cannot be excluded (series 6, image 13 and image 9). No fibrosis is seen at the rotator interval. Large joint effusion. The coracohumeral ligament is normal in thickness. IMPRESSION: 1. Near complete full-thickness tear of the supraspinatus with 1.7 centimeters of retraction an additional partial-thickness bursal sided tears with accompanying mild muscle atrophy. 2. Severe interstitial tears involving the infraspinatus with minimal muscle atrophy and focal partial-thickness articular sided tears of the subscapularis. 3. Long head of biceps tendon tenosynovitis with possible small interstitial tear. 4. Large joint effusion. Dictated by: Hayden Cummings M.D. on 04/02/2024 at 14:40 Approved by: Hayden Cummings M.D. on 04/02/2024 at 14:58
== END ==
PROVIDERS: PCP Internal Medicine; Referring Provider Internal Medicine; Visit Provider Internal Medicine
DX: M75.111 Incomplete rotator cuff tear or rupture of right shoulder, not specified as traumatic (principal); M25.411 Effusion, right shoulder; M65.811 Other synovitis and tenosynovitis, right shoulder; M25.511 Pain in right shoulder
CPT/HCPCS: 73221

== ENCOUNTER → 2024-04-15 08:54 | Outpatient (CLI) | payer MEDICARE, OTHER, SELFPAY ==
--- NOTE | 2024-04-15 08:56 | DI.US.S_ITS ---
LIMITED ULTRASOUND OF LEFT BREAST AND AXILLA: 04/15/2024 CLINICAL: Additional evaluation requested from prior study. Comparison is made to exams dated: 04/15/2024 mammogram, 03/12/2024 mammogram, 02/25/2023 mammogram, 12/21/20[address] - [facility], 10/06/2019 mammogram, and 08/05/2018 mammogram - outside. Color flow and real-time ultrasound of the left breast 11-1 o'clock, and axilla regions were performed. Jansen scale images of the real-time examination were reviewed. No sonographic finding to correspond to the patient's resolved screening mammographic abnormality in the 12:00 position. This is likely overlapping glandular tissue. Incidentally, there is a 5 mm round cyst with debris in the left breast at 11 o'clock middle depth. This round cyst with debris is hypoechoic with an abrupt boundary and posterior acoustic enhancement. Color flow imaging demonstrates that there is no vascularity present. IMPRESSION: PROBABLY BENIGN No sonographic correlate to the resolved screening mammogram finding at 12:00 anteriorly. An incidental 5 mm cyst with debris in the left breast is probably benign. A follow-up ultrasound in 6 months is recommended to document stability or resolution. Findings and recommendations were conveyed to the patient at time of exam. This exam was interpreted at Station ID: [id number]. Electronically Signed By: Zulema mcdaniels/:04/15/2024 12:57:25 letter sent: Followup Recommended ACR BI-RADS Category 3: Probably Benign
--- NOTE | 2024-04-15 08:56 | DI.MG.S_ITS ---
UNILATERAL LEFT DIGITAL DIAGNOSTIC MAMMOGRAM 3D/2D WITH ADDITIONAL VIEWS: 04/15/2024 CLINICAL: Additional evaluation requested from prior study. Comparison is made to exams dated: 03/12/2024 mammogram, 02/25/2023 mammogram, and 12/21/2021 mammogram - [facility]. The breasts are heterogeneously dense, which may obscure small masses (category c / 51-75% glandular tissue). The focal asymmetry in the left breast at 12 o'clock anterior depth is no longer seen and is most consistent with fibroglandular tissue. No abnormality seen in additional views. No other significant masses or calcifications are seen in the breast. IMPRESSION: INCOMPLETE: NEED ADDITIONAL IMAGING EVALUATION Resolution of screening mammography abnormality with additional views. Ultrasound evaluation to confirm resolution is recommended and was performed immediately following this exam. Based on the Tyrer Cuzick model (a risk assessment model) the patient's lifetime risk is 6.6% and her 10 year risk is 3.6%. According to the ACR, ACS, and NCCN guidelines, an annual breast MRI exam along with mammogram is recommended if the patient's lifetime risk is 20% or greater. This exam was interpreted at Station ID: [id number]. NOTE: For mammograms, a report in lay terms will be sent to the patient. Approximately 15% of breast malignancies will not be visualized mammographically. In the management of a palpable breast mass, a negative mammogram must not discourage biopsy of a clinically suspicious lesion. Electronically Signed By: Zulema mcdaniels/:04/15/2024 10:11:33 letter sent: Additional Imaging Needed ACR BI-RADS Category 0: Incomplete: Need Additional Imaging Evaluation
== END ==
PROVIDERS: PCP Internal Medicine; Referring Provider Internal Medicine; Visit Provider Internal Medicine
DX: R92.8 Other abnormal and inconclusive findings on diagnostic imaging of breast (principal); R92.333 Mammographic heterogeneous density, bilateral breasts; N60.02 Solitary cyst of left breast
CPT/HCPCS: 76642; 77065; G0279

== ENCOUNTER → 2024-06-02 08:41 | Outpatient (CLI) | payer MEDICARE, OTHER, SELFPAY ==
[2024-06-02 09:34] LABS: Hemoglobin A1C% w Est Avg Glu 4.9 % (4.0-6.0)
[2024-06-02 09:43] LABS: BUN Creatinine Ratio 23.8 (6-22); Blood Urea Nitrogen 24 mg/dL (7-17); Calcium 9.9 mg/dL (8.4-10.2); Carbon Dioxide 29 mmol/L (22-32); Chloride 99 mmol/L (98-107); Estimated Glomerular Filt Rate > 60 mL/min (>60); Glucose 93 mg/dL (80-110); HEMOLYSIS < 15 (0-50); Potassium 3.6 mmol/L (3.4-5.1); Sodium 137 mmol/L (137-145)
== END ==
PROVIDERS: PCP Internal Medicine; Referring Provider Internal Medicine; Visit Provider Internal Medicine
DX: R73.02 Impaired glucose tolerance (oral) (principal); I10 Essential (primary) hypertension
CPT/HCPCS: 36415; 80048; 83036

== ENCOUNTER → 2024-11-14 15:48 | Outpatient (CLI) | payer MEDICARE, OTHER, SELFPAY ==
--- NOTE | 2024-11-14 | DI.MRI.S_ITS ---
PROCEDURE: MR SHOULDER RT WO CON INDICATIONS: Pain TECHNIQUE: Noncontrast oblique coronal T2 fast spin echo with fat saturation, oblique sagittal T1 spin echo and T2 fast spin echo with fat saturation, axial T1 spin echo and T2 fast spin echo with fat saturation through the shoulder. COMPARISON: [facility], MR, MR SHOULDER RT WO CON, 04/02/2024, 13:24. FINDINGS: Image quality: Excellent. Rotator cuff: There is full-thickness tearing of the posterior supraspinatus tendon at the musculotendinous junction measuring 8 mm anteroposterior. There is moderate grade tearing of the mid and anterior supraspinatus tendon at the humeral insertion site extending to the musculotendinous junction. There is moderate thinning of the anterior mid infraspinatus tendon at the humeral insertion site extending the musculotendinous junction. Subscapularis and teres minor tendons are intact. Bones and bursae: No bone marrow contusions or fractures. Tendon anchors within the humeral head. Moderate glenohumeral and acromioclavicular joint degeneration. The acromion demonstrates conventional anatomy, without an os acromiale. No pathologic subacromial-subdeltoid or subcoracoid bursal fluid is present. Capsule and soft tissues: Diffuse degenerative fraying of the glenoid labrum. Undercutting of the anteroinferior labrum. Status post biceps tendon reimplantation. Biceps tendon is not seen. The rotator interval appears normal, without fibrosis. The coracohumeral ligament is normal in thickness. IMPRESSION: 1. Postsurgical sequelae. 2. Full-thickness and partial-thickness tearing of the supraspinatus tendon. 3. Partial-thickness tearing of the infraspinatus tendon. 4. Nonvisualization of the reimplanted biceps tendon, suggestive of tearing. 5. Acromioclavicular and glenohumeral joint osteoarthritis. 6. Findings suggestive of labral tearing. Dictated by: Marcell Yañez M.D. on 11/15/2024 at 11:55 Approved by: Marcell Yañez M.D. on 11/15/2024 at 11:59
== END ==
LOC: MRI 15:50
PROVIDERS: PCP Internal Medicine; Referring Provider Orthopaedic Surgery; Visit Provider Orthopaedic Surgery
DX: M75.121 Complete rotator cuff tear or rupture of right shoulder, not specified as traumatic (principal); M19.011 Primary osteoarthritis, right shoulder; M75.01 Adhesive capsulitis of right shoulder; M67.911 Unspecified disorder of synovium and tendon, right shoulder; M67.921 Unspecified disorder of synovium and tendon, right upper arm; Z98.890 Other specified postprocedural states
CPT/HCPCS: 73221

== ENCOUNTER → 2025-01-03 09:27 | Outpatient (CLI) | payer MEDICARE, OTHER, SELFPAY ==
[2025-01-03 11:19] LABS: Thyroid Stimulating Hormone 0.578 uIU/mL (0.47-4.68)
== END ==
PROVIDERS: PCP Internal Medicine; Referring Provider Emergency Medicine; Visit Provider Emergency Medicine
DX: Z13.29 Encounter for screening for other suspected endocrine disorder (principal); E78.5 Hyperlipidemia, unspecified; N95.8 Other specified menopausal and perimenopausal disorders
CPT/HCPCS: 36415; 82172; 83695; 84443

== ENCOUNTER → 2025-01-04 11:17 | Outpatient (CLI) | payer MEDICARE, OTHER, SELFPAY ==
--- NOTE | 2025-01-04 11:18 | DI.RAD.S_ITS ---
PROCEDURE: XR DEXA AXIAL SKELETON
== END ==
LOC: RAD 11:18
PROVIDERS: PCP Internal Medicine; Referring Provider Internal Medicine; Visit Provider Emergency Medicine
DX: N95.8 Other specified menopausal and perimenopausal disorders (principal)
CPT/HCPCS: 77080